=== PATIENT | male | born 1965 | race African-American/Black ===

== ENCOUNTER 2016-05-04 20:55 | Emergency (ER) | payer OTHER ==
[2016-05-04] MEDS ORDERED: Aspirin Low Dose CHEW TAB* 81 MG PO ONE (21:12)
[2016-05-04 21:50] LABS: BUN/Creatinine Ratio 19.3 (8-20); Calcium 9.7 mg/dL (8.6-10.3); EGFR African American 126.1 (>60); EGFR Non-African American 98.1 (>60); Globulin 3.6 g/dL (2-4); Total Bilirubin 0.3 mg/dL (0.2-1.0); Total Protein 7.6 g/dL (6.4-8.9)
--- NOTE | 2016-05-04 22:01 | RAD ---
HISTORY: Chest pain COMPARISONS: November 13, 2009 VIEWS:1: Single frontal portable view of the chest at 9:38 PM FINDINGS: LINES AND TUBES: None. CARDIOMEDIASTINAL SILHOUETTE: The cardiomediastinal silhouette is normal for portable technique. PLEURA: The costophrenic angles are sharp. No pleural abnormalities are noted. LUNG PARENCHYMA: The lungs are clear. ABDOMEN: The upper abdomen is clear. There is no subphrenic gas. BONES AND SOFT TISSUES: No bone or soft tissue abnormalities are noted. IMPRESSION: NO ACTIVE CARDIOPULMONARY DISEASE.
[2016-05-04 22:13] LABS: Potassium 4.1 mmol/L (3.5-5.0)
[2016-05-04] MEDS ORDERED: Ketorolac INJ* 30 MG/ML 1 ML VIAL IV ONE (23:20)
[2016-05-05 02:03] VITALS: BP 126/84
--- NOTE | 2016-05-05 23:12 | ED ---
Josesito Anthony Anna, scribed for Noah Rahman MD on 05/04/16 at 2122 . HPI Chest Pain - HPI Summary HPI Summary: Patient is a 51 y/o male coming to [facility] presenting with sudden onset of acute CP that began at 2015 this evening. He describes the pain as a stabbing pain with severity of 10/10 at peak, 7/10 at rest. He has had constant CP for one week, but it was not severe until this evening. The current pain is exacerbated by deep breaths. He additionally reports lightheadedness, arm pain, and SOB. His history is significant for NIDDM, HTN, bipolar disorder, and high cholesterol. - History of Current Complaint Time Seen by Provider: 05/04/16 21:02 Hx Obtained From: Patient, EMS Timing: Lasting Weeks Pain Intensity: 7 Pain Scale Used: 0-10 Numeric - Allergy/Home Medications Allergies/Adverse Reactions: Allergies Allergy/AdvReac Type Severity Reaction Status Date / Time Peanut-derived Allergy Severe Anaphylatic Verified 05/04/16 21:09 Shock PMH/Surg Hx/FS Hx/Imm Hx Endocrine/Hematology History: Reports: Hx Diabetes Cardiovascular History: Reports: Hx Hypercholesterolemia, Hx Hypertension Psychiatric History: Reports: Hx Bipolar Disorder - Surgical History Surgery Procedure, Year, and Place: [employer] AT AGE 6 - Immunization History Date of Tetanus Vaccine: unknwn Date of Influenza Vaccine: unknown - Family History Known Family History: Positive: Hypertension, Other - CVA - Social History Alcohol Use: None Substance Use Type: Reports: None Smoking Status (MU): Never Smoked Tobacco Review of Systems Positive: Chest Pain Positive: Shortness Of Breath Positive: Arthralgia Neurological: Other - lightheadedness All Other Systems Reviewed And Are Negative: Yes Physical Exam Triage Information Reviewed: Yes Vital Signs On Initial Exam: Temp Pulse Resp BP Pulse Ox 97.5 F 87 16 147/98 96 05/04/16 21:05 05/04/16 21:05 05/04/16 21:05 05/04/16 21:05 05/04/16 21:05 Vital Signs Reviewed: Yes Appearance: Positive: Well-Appearing, No Pain Distress Skin: Positive: Warm, Skin Color Reflects Adequate Perfusion, Dry Head/Face: Positive: Normal Head/Face Inspection Eyes: Positive: Normal ENT: Positive: Normal ENT inspection Neck: Positive: Supple, Nontender Respiratory/Lung Sounds: Positive: Clear to Auscultation, Breath Sounds Present Cardiovascular: Positive: RRR Abdomen Description: Positive: Nontender, Soft Bowel Sounds: Positive: Present Musculoskeletal: Positive: Normal Neurological: Positive: Normal Psychiatric: Positive: Affect/Mood Appropriate Diagnostics - Vital Signs Vital Signs Temp Pulse Resp BP Pulse Ox 05/05/16 02:02 98.1 F 60 17 126/84 05/05/16 01:30 65 14 133/82 99 05/05/16 01:00 63 15 126/82 97 05/05/16 00:30 123/78 05/05/16 00:01 65 21 123/78 96 05/05/16 00:00 64 20 96 05/04/16 23:30 66 17 122/80 96 05/04/16 23:00 67 20 120/80 96 05/04/16 22:55 69 19 95 05/04/16 22:30 70 13 109/76 96 05/04/16 22:00 76 16 118/75 97 05/04/16 21:30 80 15 136/85 96 05/04/16 21:29 97 05/04/16 21:05 97.5 F 87 16 147/98 96 05/04/16 21:04 92 94 05/04/16 21:03 147/98 - Laboratory Lab Results: Lab Results 05/04/16 05/04/16 05/04/16 Range/Units 21:25 21:51 21:51 D-Dimer, Quantitative < 200 (Less Than 230) ng/mL Sodium 132 L (133-145) mmol/L Potassium 4.1 (3.5-5.0) mmol/L Chloride 103 (101-111) mmol/L Carbon Dioxide 22 (22-32) mmol/L Anion Gap 7 (2-11) mmol/L BUN 16 (6-24) mg/dL Creatinine 0.83 (0.67-1.17) mg/dL Est GFR ( Amer) 126.1 (>60) Est GFR (Non-Af Amer) 98.1 (>60) BUN/Creatinine Ratio 19.3 (8-20) Glucose 195 H (70-100) mg/dL Lactic Acid 0.9 (0.5-2.0) mmol/L Calcium 9.7 (8.6-10.3) mg/dL Total Bilirubin 0.30 (0.2-1.0) mg/dL AST 14 (13-39) U/L ALT 12 (7-52) U/L Alkaline Phosphatase 50 (34-104) U/L Troponin I 0.00 (<0.04) ng/mL Total Protein 7.6 (6.4-8.9) g/dL Albumin 4.0 (3.2-5.2) g/dL Globulin 3.6 (2-4) g/dL Albumin/Globulin Ratio 1.1 (1-3) 05/05/16 Range/Units 00:40 D-Dimer, Quantitative (Less Than 230) ng/mL Sodium (133-145) mmol/L Potassium (3.5-5.0) mmol/L Chloride (101-111) mmol/L Carbon Dioxide (22-32) mmol/L Anion Gap (2-11) mmol/L BUN (6-24) mg/dL Creatinine (0.67-1.17) mg/dL Est GFR ( Amer) (>60) Est GFR (Non-Af Amer) (>60) BUN/Creatinine Ratio (8-20) Glucose (70-100) mg/dL Lactic Acid (0.5-2.0) mmol/L Calcium (8.6-10.3) mg/dL Total Bilirubin (0.2-1.0) mg/dL AST (13-39) U/L ALT (7-52) U/L Alkaline Phosphatase (34-104) U/L Troponin I 0.00 (<0.04) ng/mL Total Protein (6.4-8.9) g/dL Albumin (3.2-5.2) g/dL Globulin (2-4) g/dL Albumin/Globulin Ratio (1-3) Result Diagrams: 05/04/16 21:25 Lab Statement: Any lab studies that have been ordered have been reviewed, and results considered in the medical decision making process. - Radiology CXR Xray Interpretation: No Acute Changes Radiology Interpretation Completed By: Radiologist - EKG 2106 Cardiac Rate: NL - 85 bpm EKG Rhythm: Sinus Rhythm ST Segment: Normal Ectopy: None Chest Pain Course/Dx - Course Assessment/Plan: Patient is a 51 y/o male coming to [facility] presenting with sudden onset of acute CP that began at 2015 this evening. He describes the pain as a stabbing pain with severity of 10/10 at peak, 7/10 at rest. He has had constant CP for one week, but it was not severe until this evening. The current pain is exacerbated by deep breaths. He additionally reports lightheadedness, arm pain, and SOB. His history is significant for NIDDM, HTN, bipolar disorder, and high cholesterol. CXR reveals no acute disease. Labs reveal glucose of 195 and initial troponin of 0.00. Patient will be signed out to Dr. Tapia pending repeat troponin. - Diagnoses Provider Diagnoses: Chest pain - Provider Notifications Discussed Care Of Patient With: Dr. Tapia Time Discussed With Above Provider: 00:00 - change of shift Discharge - Discharge Plan Condition: Stable Disposition: OTHER Discharge Disposition Comment: Signed out to Dr. Tapia, pending repeat Troponin Patient Education Materials: Chest Pain (ED) Referrals: Byron Mcdaniels MD [Primary Care Provider] - The documentation as recorded by the Josesito ruiz Anna accurately reflects the service I personally performed and the decisions made by , Noah Rahman MD.
--- NOTE | 2016-07-22 20:06 | ED ---
Progress - Progress Note Progress Note: repeat troponin neg pt d/c home stable dx chest pain Course/Dx - Diagnoses Provider Diagnoses: Chest pain - Provider Notifications Discussed Care Of Patient With: Dr. Tapia Time Discussed With Above Provider: 00:00 - change of shift
== END 2016-05-05 02:02 ==
LOC: ED 20:55
DX: R07.9 Chest pain, unspecified (principal); E11.9 Type 2 diabetes mellitus without complications; I10 Essential (primary) hypertension; F31.9 Bipolar disorder, unspecified; E78.00 Pure hypercholesterolemia, unspecified
CPT/HCPCS: 36415; 71010; 80053; 83605; 84484; 85379; 93005; 96374; 99285; J1885

== ENCOUNTER 2016-12-24 13:45 | Emergency (ER) | payer SELFPAY ==
[2016-12-24 15:05] LABS: Hematocrit 42 % (42-52); Hemoglobin 14.3 g/dl (14.0-18.0); Mean Corpuscular HGB Conc 34 g/dl (31-36); Mean Corpuscular Hemoglobin 28 pg (27-31); Mean Corpuscular Volume 84 fL (80-94); Mean Platelet Volume 9 um3 (7.4-10.4); Red Blood Count 5.03 10^6/ul (4.0-5.4); Red Cell Distribution Width 14 % (10.5-15)
[2016-12-24 15:22] LABS: ALT 11 U/L (7-52); AST 15 U/L (13-39); Albumin 4.3 g/dL (3.2-5.2); Alkaline Phosphatase 60 U/L (34-104); Anion Gap 7 mmol/L (2-11); Blood Urea Nitrogen 10 mg/dL (6-24); CO2 Carbon Dioxide 26 mmol/L (22-32); Calcium 9.7 mg/dL (8.6-10.3); Chloride 102 mmol/L (101-111); EGFR African American 113.4 (>60); EGFR Non-African American 88.2 (>60); Glucose 149 mg/dL (70-100); Potassium 3.9 mmol/L (3.5-5.0); Sodium 135 mmol/L (133-145); Total Protein 8.3 g/dL (6.4-8.9)
[2016-12-24 15:26] LABS: Benzodiazepine Urine Screen None Detected (None Detect)
[2016-12-24 15:34] LABS: Acetaminophen < 15 mcg/mL; Alcohol < 10 mg/dL (<10); Salicylate < 2.50 mg/dL (<30)
[2016-12-24 15:55] LABS: Urine Bilirubin Negative (Negative); Urine Glucose 3+(>=500 mg/dL) (Negative); Urine Nitrite Negative (Negative)
[2016-12-24 15:58] LABS: TSH (Thyroid Stimulating Horm) 1.05 mcIU/mL (0.34-5.60)
[2016-12-24 16:40] VITALS: BP 139/81
--- NOTE | 2016-12-27 12:24 | ED ---
Gena Anthony Thomas, scribed for Mir Licona MD on 12/24/16 at 1556 . Psychiatric Complaint - HPI Summary HPI Summary: The patient is a 51 y/o M with a Hx of schizoaffective disorder and bipolar disorder who refuses to speak. Per security, the patient reports bad ideas unspecified as SI, HI, or other thoughts. He hands me a letter from 2006 that details his PMHx. LEVEL 5 CAVEAT: HPI IS LIMITED BY UNCOOPERATIVE PATIENT - History Of Current Complaint Chief Complaint: EDMentalHealth Time Seen by Provider: 12/24/16 14:33 Hx Obtained From: Other: - Security Hx From Patient Unobtainable Due To: Other - Uncooperative patient Onset/Duration: Still Present Timing: Constant Character: Depressed Aggravating Factor(s): Other - Unknown Alleviating Factor(s): Other - Unknown Related History: Positive For: Prior Psychiatric Issues - Allergies/Home Medications Allergies/Adverse Reactions: Allergies Allergy/AdvReac Type Severity Reaction Status Date / Time Peanut-derived Allergy Severe Anaphylatic Verified 05/04/16 21:09 Shock PMH/Surg Hx/FS Hx/Imm Hx Previously Healthy: No - LEVEL 5 CAVEAT: PMH IS LIMITED BY UNCOOPERATIVE PATIENT Endocrine/Hematology History: Reports: Hx Diabetes Cardiovascular History: Reports: Hx Hypercholesterolemia, Hx Hypertension Psychiatric History: Reports: Hx Bipolar Disorder, Other Psychiatric Issues/ Disorders - Hx Schizoaffective disorder - Surgical History Surgery Procedure, Year, and Place: [employer] AT AGE 6 - Immunization History Date of Tetanus Vaccine: unknwn Date of Influenza Vaccine: unknown Infectious Disease History: No Infectious Disease History: Denies: Traveled Outside the [place] in Last 30 Days - Family History Known Family History: Positive: Hypertension, Other - CVA - Social History Alcohol Use: None Substance Use Type: Reports: None Smoking Status (MU): Never Smoked Tobacco Review of Systems - ROS Summary Review of Systems Summary: LEVEL 5 CAVEAT: ROS IS LIMITED BY UNCOOPERATIVE PATIENT Positive: Other - Patient refuses to speak All Other Systems Reviewed And Are Negative: No Physical Exam - Summary Physical Exam Summary: LEVEL 5 CAVEAT: PHYSICAL EXAM IS LIMITED BY UNCOOPERATIVE PATIENT General: Well appearing, no distress Cardiovascular: Skin is well perfused Pulmonary: No respiratory distress, no tachypnea Abdomen: Non-distended Skin: Warm, pink, dry Psych: The patient refuses to speak. He has a very depressed and flat affect. He does shake his head "no" when I tell him to get into a gown. Triage Information Reviewed: Yes Vital Signs On Initial Exam: Initial Vitals Temp Pulse Resp BP Pulse Ox 98.8 F 88 20 140/72 98 12/24/16 14:31 12/24/16 14:31 12/24/16 14:31 12/24/16 14:31 12/24/16 14:31 Vital Signs Reviewed: Yes - Flower Coma Scale Coma Scale Total: 15 Diagnostics - Vital Signs Vital Signs Temp Pulse Resp BP Pulse Ox 12/24/16 14:31 98.8 F 88 20 140/72 98 - Laboratory Lab Results: Lab Results 12/24/16 12/24/16 12/24/16 Range/Units 14:20 14:45 14:45 WBC 6.0 (3.5-10.8) 10^3/ul RBC 5.03 (4.0-5.4) 10^6/ul Hgb 14.3 (14.0-18.0) g/dl Hct 42 (42-52) % MCV 84 (80-94) fL MCH 28 (27-31) pg MCHC 34 (31-36) g/dl RDW 14 (10.5-15) % Plt Count 191 (150-450) 10^3/ul MPV 9 (7.4-10.4) um3 Neut % (Auto) 58.0 (38-83) % Lymph % (Auto) 34.0 (25-47) % Knott % (Auto) 6.5 (1-9) % Eos % (Auto) 0.4 (0-6) % Baso % (Auto) 1.1 (0-2) % Absolute Neuts (auto) 3.5 (1.5-7.7) 10^3/ul Absolute Lymphs (auto) 2.0 (1.0-4.8) 10^3/ul Absolute Monos (auto) 0.4 (0-0.8) 10^3/ul Absolute Eos (auto) 0 (0-0.6) 10^3/ul Absolute Basos (auto) 0.1 (0-0.2) 10^3/ul Absolute Nucleated RBC 0 10^3/ul Nucleated RBC % 0.1 Sodium 135 (133-145) mmol/L Potassium 3.9 (3.5-5.0) mmol/L Chloride 102 (101-111) mmol/L Carbon Dioxide 26 (22-32) mmol/L Anion Gap 7 (2-11) mmol/L BUN 10 (6-24) mg/dL Creatinine 0.91 (0.67-1.17) mg/dL Est GFR ( Amer) 113.4 (>60) Est GFR (Non-Af Amer) 88.2 (>60) BUN/Creatinine Ratio 11.0 (8-20) Glucose 149 H (70-100) mg/dL Calcium 9.7 (8.6-10.3) mg/dL Total Bilirubin 0.40 (0.2-1.0) mg/dL AST 15 (13-39) U/L ALT 11 (7-52) U/L Alkaline Phosphatase 60 (34-104) U/L Total Protein 8.3 (6.4-8.9) g/dL Albumin 4.3 (3.2-5.2) g/dL Globulin 4.0 (2-4) g/dL Albumin/Globulin Ratio 1.1 (1-3) TSH Pending Salicylates < 2.50 (<30) mg/dL Urine Opiates Screen None detected (None Detect) Acetaminophen < 15 mcg/mL Ur Barbiturates Screen None detected (None Detect) Ur Phencyclidine Scrn None detected (None Detect) Ur Amphetamines Screen None detected (None Detect) U Benzodiazepines Scrn None detected (None Detect) Urine Cocaine Screen None detected (None Detect) U Cannabinoids Screen None detected (None Detect) Serum Alcohol < 10 (<10) mg/dL Result Diagrams: 12/24/16 14:45 12/24/16 14:45 Lab Statement: Any lab studies that have been ordered have been reviewed, and results considered in the medical decision making process. Course/Dx - Course Assessment/Plan: The patient is a 51 y/o M with a Hx of schizoaffective disorder and bipolar disorder who refuses to speak. Per security, the patient reports bad ideas unspecified as SI, HI, or other thoughts. He hands me a letter from 2006 that details his PMHx. Bloodwork was obtained. UA was obtained. Urine toxicology is negative. The patient is cleared for MHE at 16:08. - Differential Dx/Clinical Impression Provider Diagnosis: Catatonia schizophrenia Discharge - Discharge Plan Condition: Stable Disposition: HOME Referrals: [facility] [Outside] Bishop Ackerman MD [Medical Doctor] - No Primary Care Phys,NOPCP [Primary Care Provider] - Additional Instructions: Per completion of a mental health evaluation, you are cleared for release and do not require inpatient psychiatric hospitalization at this time. Please go to nearest emergency room or call 911 if safety concerns arise or condition worsens. IMPORTANT PHONE NUMBERS: [facility] Behavioral Services Unit: [facility] Emergency Room Flex Unit: Suicide Prevention and Crisis Services: National Suicide Prevention Lifeline: [phone]) 464-VMMA ([phone]) [facility]: [facility] Outreach for Older Adults: [facility] Association: [facility]: OUTPATIENT SERVICES You have been referred to [facility]. It is our recommendation that you call [facility] to secure an appointment on their next business day, FridayDecember 25. Adults can schedule their first appointment by phone or in person during walk-in hours. Walk-in hours occur Friday - Friday until 2:30pm. If you require further assistance connecting to outpatient providers, please contact our Mental Health Unit at . [facility] [address], [place] [address] You have been referred to the [facility] ( [facility]). It is our It is our recommendation that you call [facility] to discuss potential programs you may further benefit from on their next business day. [facility] is open Friday to Friday from 9: 00am until 4:30pm. We have provided you with information on their adult services, [facility], and Family Support Services during review of discharge instructions. [facility] [address], [address] [place], [place] [address] No changes or adjustments were made to your medication regimen during this evaluation. Continue medications as prescribed by your outpatient providers. It is our recommendation that you contact Dr. Ackerman directly to discuss further medication management. The documentation as recorded by the Gena ruiz Thomas accurately reflects the service I personally performed and the decisions made by me, Mir Licona MD.
== END 2016-12-24 21:15 | disposition home or self-care (01) ==
LOC: ED 13:45
DX: F20.2 Catatonic schizophrenia (principal)
CPT/HCPCS: 36415; 80053; 80307; 80320; 80329; 81003; 84443; 85025; 93005; 99285; G0480

== ENCOUNTER 2017-10-07 10:03 | Emergency (ER) | payer OTHER ==
--- NOTE | 2017-10-07 10:08 | ED ---
Dizziness - HPI Summary HPI Summary: 52 y/o male presents to the ED c/o sudden onset dizziness and nausea at 06:00 this morning. Pt woke up to this. Pt describes dizziness as a room spinning, where "everything was moving". Associated sx: weakness, SOB. PMHx DM type II, HTN. 175/100 BP this morning. This is scribe Ed Lilia documenting for attending Willard Rutherford MD - History Of Current Complaint Stated Complaint: DIZZINESS/NAUSEOUS Hx Obtained From: Patient Timing: Constant Character: Weak, Dizzy Associated Signs And Symptoms: Positive: Nausea, SOB - Allergies/Home Medications Allergies/Adverse Reactions: Allergies Allergy/AdvReac Type Severity Reaction Status Date / Time No Known Allergies Allergy Verified 10/07/17 11:31 Home Medications: Home Medications Empagliflozin [Jardiance] 25 mg PO DAILY 10/07/17 [History Confirmed 10/07/17] Lovastatin(NF) [Mevacor(NF)] 20 mg PO DAILY 10/07/17 [History Confirmed 10/07/17 ] Ramipril CAP* [Altace CAP*] 2.5 mg PO DAILY 10/07/17 [History Confirmed 10/07/17 ] Sertraline* [Zoloft*] 25 mg PO DAILY 10/07/17 [History Confirmed 10/07/17] glipiZIDE TAB* [Glucotrol TAB*] 5 mg PO BID 10/07/17 [History Confirmed 10/07/17 ] hydrOXYzine HCL TAB* [Atarax 25 MG TAB*] 25 - 50 mg PO QPM PRN 10/07/17 [ History Confirmed 10/07/17] lamoTRIgine TAB(*) [Lamictal TAB(*)] 25 mg PO BID 10/07/17 [History Confirmed ] PMH/Surg Hx/FS Hx/Imm Hx Previously Healthy: No Endocrine/Hematology History: Reports: Hx Diabetes Cardiovascular History: Reports: Hx Hypercholesterolemia, Hx Hypertension Psychiatric History: Reports: Hx Bipolar Disorder, Other Psychiatric Issues/ Disorders - Hx Schizoaffective disorder Denies: Hx of Violent Episodes Against Others - Surgical History Surgery Procedure, Year, and Place: [employer] AT AGE 6 - Immunization History Date of Tetanus Vaccine: unknwn Date of Influenza Vaccine: unknown - Family History Known Family History: Positive: Hypertension, Other - CVA - Social History Alcohol Use: None Substance Use Type: Reports: None Smoking Status (MU): Never Smoked Tobacco Review of Systems Constitutional: Negative Eyes: Negative ENT: Negative Cardiovascular: Negative Positive: Shortness Of Breath Positive: Nausea Genitourinary: Negative Musculoskeletal: Negative Skin: Negative Neurological: Other - dizziness Positive: Weakness Psychological: Normal All Other Systems Reviewed And Are Negative: Yes Physical Exam - Summary Physical Exam Summary: VITAL SIGNS: Reviewed. GENERAL: Patient is a well-developed and nourished MALE who is lying comfortable in the stretcher. Patient is not in any acute respiratory distress. HEAD AND FACE: Normocephalic EYES: PERRLA, EOMI x 2. No nystagmus. EARS: Hearing grossly intact. MOUTH: Oropharynx within normal limits. NECK: Supple, trachea is midline, no adenopathy, no JVD, no carotid bruit. CHEST: Symmetric, no tenderness at palpation LUNGS: Clear to auscultation bilaterally. No wheezing or crackles. CVS: Regular rate and rhythm, S1 and S2 present, no murmurs or gallops appreciated. ABDOMEN: Soft, non-tender. Bowel sounds are normal. No abdominal abnormal pulsations. EXTREMITIES: Full ROM in all major joints, no edema, no cyanosis or clubbing. NEURO: Alert and oriented x 3. No acute neurological deficits. Speech is normal and follows commands. SKIN: Dry and warm Triage Information Reviewed: Yes Vital Signs Reviewed: Yes Diagnostics - Laboratory Result Diagrams: 10/07/17 10:34 10/07/17 10:34 Lab Statement: Any lab studies that have been ordered have been reviewed, and results considered in the medical decision making process. - Radiology CXR Xray Interpretation: No Acute Changes - LOW LUNG VOLUMES. NO ACTIVE CARDIOPULMONARY DISEASE. Radiology Interpretation Completed By: Radiologist - CT BRAIN CT CT Interpretation: No Acute Changes - NO ACUTE INTRACRANIAL PATHOLOGY CT Interpretation Completed By: Radiologist - Additional Comments Diagnostic Additional Comments: EKG - 10:22 - SB @ [address] elevations, T wave inversions in III, aVF. Diffuse ST abnormalities. Unchanged from 12/24/16. Re-Evaluation - Re-Evaluation 1 Re-Evaluation Time: 13:00 Change: Improved - Pt feeling better. Instructed d/c. Discussed test results and findings Dizzy Course/Dx - Course Assessment/Plan: Patient is a 52-year-old male who presents to the emergency room via ambulance with chief complaint of dizziness. Patient reports that he woke up approximately 6 in the morning he developed dizziness. He reports the room spinning acid with mild nausea. Denies any chest pain shows with the palpitations. Patient has past medical history significant for diabetes, hypertension and dyslipidemia. Blood test results without any significant abnormality except for mild anemia, and glucose of 159. Chest x-ray impression : Low lung volumes. No active Pulmonary disease. Head CT impression: No acute interconnected pathology. In the ED course the patient was given IV fluids, Antivert for the dizziness and his symptoms have resolved. The patient also was given Zofran for nausea vomiting and he reports that he is feeling better and all his symptoms have resolved. The patient is hemodynamically stable alert and oriented 3. I discussed all the findings and test results with the patient and the need to follow-up with PCP. All his questions were answered and he has no further concerns. He was instructed to return to the emergency room he develops any chest pain, shortness of breath, dizziness or he returns he understands and agrees. - Diagnoses Provider Diagnoses: Vertigo Discharge - Sign-Out/Discharge Documenting (check all that apply): Patient Departure - Discharge Plan Condition: Stable Disposition: HOME Prescriptions: Meclizine TAB* [Antivert 12.5 TAB*] 25 mg PO TID PRN #30 tab PRN Reason: Vertigo Patient Education Materials: Vertigo (ED) Referrals: [facility] [Outside] - If Needed (CALL FOR APPOINTMENT) [facility] [Outside] - 4 Days (PLEASE F/U IN 3-5 DAYS) Additional Instructions: RETURN FOR CHANGING/WORSENING SYMPTOMS
[2017-10-07] MEDS ORDERED: NS 0.9% 1000 ML* 1,000 ML IV ONE (10:17)
[2017-10-07] MEDS ORDERED: Meclizine TAB* 12.5 MG PO ONE (10:17)
[2017-10-07] MEDS ORDERED: Ondansetron INJ* 2 MG/ML VIAL IV ONE (10:17)
[2017-10-07 10:50] LABS: ABS Basophils 0 10^3/ul (0-0.2); ABS Eosinophils 0.1 10^3/ul (0-0.6); ABS Lymphocytes 2.4 10^3/ul (1.0-4.8); ABS Monocytes 0.5 10^3/ul (0-0.8); ABS Neutrophils 2.3 10^3/ul (1.5-7.7); ABS Nucleated RBC 0 10^3/ul; Eosinophil % 1.1 % (0-6); Hematocrit 40 % (42-52); Hemoglobin 13.5 g/dl (14.0-18.0); Lymphocyte % 45.7 % (25-47); Mean Corpuscular HGB Conc 34 g/dl (31-36); Mean Corpuscular Hemoglobin 28 pg (27-31); Mean Corpuscular Volume 83 fL (80-94); Mean Platelet Volume 8.9 um3 (7.4-10.4); Nucleated Red Blood Cells % 0.2; Platelet Count 155 10^3/ul (150-450); Red Blood Count 4.79 10^6/ul (4.00-5.40); Red Cell Distribution Width 14 % (10.5-15); White Blood Count 5.3 10^3/ul (3.5-10.8)
--- NOTE | 2017-10-07 10:59 | RAD ---
HISTORY: dizziness COMPARISONS: May 04, 2016 VIEWS: 4: Frontal dual-energy and lateral views of the chest. FINDINGS: CARDIOMEDIASTINAL SILHOUETTE: The cardiomediastinal silhouette is normal. SHAKEEL: The shakeel are normal. PLEURA: The costophrenic angles are sharp. No pleural abnormalities are noted. LUNG PARENCHYMA: The lung volumes are low. The lungs are clear. ABDOMEN: The upper abdomen is clear. There is no subphrenic gas. BONES AND SOFT TISSUES: No bone or soft tissue abnormalities are noted. OTHER: None. IMPRESSION: LOW LUNG VOLUMES. NO ACTIVE CARDIOPULMONARY DISEASE.
[2017-10-07 11:14] LABS: EGFR Non-African American 96.3 (>60)
--- NOTE | 2017-10-07 12:22 | RAD ---
HISTORY: dizziness COMPARISONS: MRI dated September 12, 2008 TECHNIQUE: Multiple contiguous axial CT scans were obtained of the head without intravenous contrast. FINDINGS: HEMORRHAGE/INFARCT: There is no hemorrhage or acute infarct. MASSES/SHIFT: There is no mass or shift. EXTRA-AXIAL SPACES: There are no extra-axial fluid collections. SULCI AND VENTRICLES: The sulci and ventricles are normal in size and position for the patient's stated age. CEREBRUM: There are no focal parenchymal abnormalities. BRAINSTEM: There are no focal parenchymal abnormalities. CEREBELLUM: There are no focal parenchymal abnormalities. VESSELS: The vessels are grossly normal. PARANASAL SINUSES: The paranasal sinuses are clear. ORBITS: The orbits are unremarkable. BONES AND SOFT TISSUE: No bone or soft tissue abnormalities are noted. OTHER: None IMPRESSION: NO ACUTE INTRACRANIAL PATHOLOGY.
[2017-10-07 13:16] LABS: Urine Appearance Clear; Urine Blood Negative (Negative); Urine Color Yellow; Urine Ketones Trace (Negative); Urine Protein Negative (Negative); Urine Specific Gravity 1.028 (1.010-1.030); Urine Urobilinogen Negative (Negative)
[2017-10-07 13:27] VITALS: BP 145/82
== END 2017-10-07 13:26 | disposition home or self-care (01) ==
LOC: ED 10:03
DX: R42 Dizziness and giddiness (principal); R11.2 Nausea with vomiting, unspecified; D64.9 Anemia, unspecified; E11.9 Type 2 diabetes mellitus without complications; I10 Essential (primary) hypertension; E78.5 Hyperlipidemia, unspecified; Z79.84 Long term (current) use of oral hypoglycemic drugs; Z79.899 Other long term (current) drug therapy
CPT/HCPCS: 36415; 70450; 71046; 80053; 80307; 80320; 81003; 82550; 83605; 83735; 83880; 84443; 84484; 85025; 86140; 93005; 96361; 96374; 99283; A9270-GY; G0480; J2405

== ENCOUNTER 2018-01-26 14:29 | Emergency (ER) | payer OTHER ==
[2018-01-26 14:49] VITALS: BP 140/85
--- NOTE | 2018-01-26 15:23 | UC ---
Eye Complaint HPI - HPI Summary HPI Summary: Patient presents with a past medical history of DM, and depression. He states he was a patient of Dr. Guillen and was discharged from the practice. He states he has ran out of his depression medication and his diabetic medications. He is in the process of finding a new doctor. He also states he has a stye of his left eye x 5 days, with not pain, drainage, or visual changes. He reports no other concerns or complaints at this visit. - History of Current Complaint Chief Complaint: UCEye Stated Complaint: EYE COMPLAINT Time Seen by Provider: 01/26/18 15:18 Hx Obtained From: Patient Onset/Duration: Sudden Onset Timing: Constant Severity Initially: Mild Severity Currently: Mild Pain Intensity: 5 Location of Injury: Eye Lid (upper) Character: Dull Aggravating Factor(s): Blinking Alleviating Factor(s): Nothing Associated Signs And Symptoms: Positive: Negative Related History: Similar Episode - stye - Risk Factors Penetrating Injury Risk Factor: Negative Acute Glaucoma Risk Factors: Negative - Allergies/Home Medications Allergies/Adverse Reactions: Allergies Allergy/AdvReac Type Severity Reaction Status Date / Time peanut Allergy See Comment Verified 01/26/18 14:50 Home Medications: Home Medications Aspirin 81 mg PO ONCE PRN 01/26/18 [History Confirmed 01/26/18] Naproxen [Naprosyn 500 mg tab] 500 mg PO ONCE PRN 01/26/18 [History Confirmed ] PMH/Surg Hx/FS Hx/Imm Hx Previously Healthy: Yes Endocrine History: Diabetes Psychological History: Depression, Bipolar Disorder - Surgical History Surgical History: Yes Surgery Procedure, Year, and Place: [employer] AT AGE 6 - Family History Known Family History: Positive: Hypertension, Other - CVA - Social History Occupation: Disabled Lives: Alone Alcohol Use: None Substance Use Type: None Smoking Status (MU): Never Smoked Tobacco Review of Systems All Other Systems Reviewed And Are Negative: Yes Constitutional: Positive: Negative Skin: Positive: Negative Eyes: Positive: Other - swelling of right upper eye lid ENT: Positive: Negative Respiratory: Positive: Negative Cardiovascular: Positive: Negative Gastrointestinal: Positive: Negative Genitourinary: Positive: Negative Motor: Positive: Negative Neurovascular: Positive: Negative Musculoskeletal: Positive: Negative Neurological: Positive: Negative Psychological: Positive: Negative Physical Exam Triage Information Reviewed: Yes Appearance: Well-Appearing Vital Signs: Initial Vital Signs Temp 96 F 01/26/18 14:43 Pulse 81 01/26/18 14:43 Resp 18 01/26/18 14:43 BP 140/85 01/26/18 14:43 Pulse Ox 100 01/26/18 14:43 Vital Signs Reviewed: Yes Eye Exam: Normal Eyes: Positive: Conjunctiva Clear, Other: - localized swelling of the right medial upper eye lid. ENT Exam: Normal Neck exam: Normal Neck: Positive: 1 Respiratory Exam: Normal Cardiovascular Exam: Normal Abdominal Exam: Normal Musculoskeletal Exam: Normal Neurological Exam: Normal Psychological Exam: Normal Skin Exam: Normal Eye Complaint Course/Dx - Course Course Of Treatment: Patient present with a stye of the right eye, he was treated with erythomycin opth ointment tid x 7 days. He also needed refills of his jardiance, and lamictial which were veribfied and he was given a 14 day supply and physician referral. He was previously a patient of Dr. Guillen and appears to have been discharged from his service. - Differential Dx/Diagnosis Differential Diagnosis/HQI/PQRI: Other - stye Provider Diagnoses: stye Discharge - Sign-Out/Discharge Documenting (check all that apply): Patient Departure All imaging exams completed and their final reports reviewed: No Studies - Discharge Plan Condition: Stable Disposition: HOME Prescriptions: Empagliflozin [Jardiance] 25 mg PO BID #28 tab Erythromycin OPTH OINT* [Erythromycin 0.5% OPTH OINT*] 1 applic RIGHT EYE TID # 1 ophth.oint lamoTRIgine TAB(*) [LaMICtal TAB(*)] 50 mg PO BID #28 tab Patient Education Materials: Stye (ED), Medicine Refill (ED) Referrals: No Primary Care Phys,NOPCP [Primary Care Provider] - Francisco Akhtar MD [Medical Doctor] - - Billing Disposition and Condition Condition: STABLE Disposition: Home - Attestation Statements Document Initiated by Scribe: No Scribe Documentation Reviewed: No
== END 2018-01-26 15:33 | disposition home or self-care (01) ==
LOC: UCEAST 14:29
DX: H00.014 Hordeolum externum left upper eyelid (principal); E11.9 Type 2 diabetes mellitus without complications; Z91.010 Allergy to peanuts; Z79.82 Long term (current) use of aspirin
CPT/HCPCS: 99212; G0463

== ENCOUNTER 2018-03-25 13:30 | Emergency (ER) | payer OTHER ==
--- NOTE | 2018-03-25 14:59 | UC ---
Psychiatric Complaint HPI - HPI Summary HPI Summary: 52 y/o male presents to the urgent care requesting medication refill for his Bipolar disorder and HTN. Pt reports feeling well. However he run out of his medications and all of the PCP's in the area have refused to see him. He states she has missed a lot of his appt and now their offices refused to see him. Last DR who saw him was Dr Conroy. He request medication refill for Lamotrigine PO and Ramipril PO. He states he has missed his appt id because he becomes bery anxious when He denies any depressive thoughts, suicidal or hallucination or homicidal ideation now. Pt states his ex- is the director in the [facility] and they have also declined to see him to get medication refill. He contacted his ex- over the phone and she states she will tried to get him an appt for further management on his psychiatric problem. Pt denies fever, HERNANDEZ, dizziness, SOB, chest pain, abdominal pain, N/V/D. - History Of Current Complaint Chief Complaint: UCMedRefill Stated Complaint: MED REFILL Time Seen by Provider: 03/25/18 14:56 Hx Obtained From: Patient Onset/Duration: Still Present - Pt requesting medication refill for Bipolar disorder and HTN Timing: Constant Severity Initially: Mild Severity Currently: Mild Aggravating Factor(s): Nothing Alleviating Factor(s): Medication Associated Signs And Symptoms: Negative - Risk Factor(s) Completed Suicide Risk Factors: Negative - Allergies/Home Medications Allergies/Adverse Reactions: Allergies Allergy/AdvReac Type Severity Reaction Status Date / Time peanut Allergy See Comment Verified 03/25/18 13:53 PMH/Surg Hx/FS Hx/Imm Hx Previously Healthy: Yes Endocrine History: Diabetes Cardiovascular History: Hypertension Psychological History: Bipolar Disorder - Surgical History Surgical History: Yes Surgery Procedure, Year, and Place: [employer] AT AGE 6 - Family History Known Family History: Positive: Hypertension, Other - CVA - Social History Occupation: Unemployed Lives: With Family Alcohol Use: None Substance Use Type: None Smoking Status (MU): Never Smoked Tobacco Review of Systems All Other Systems Reviewed And Are Negative: Yes Constitutional: Positive: Negative Skin: Positive: Negative Eyes: Positive: Negative ENT: Positive: Negative Respiratory: Positive: Negative Cardiovascular: Positive: Negative Gastrointestinal: Positive: Negative Genitourinary: Positive: Negative Motor: Positive: Negative Neurovascular: Positive: Negative Musculoskeletal: Positive: Negative Neurological: Positive: Negative Psychological: Positive: Negative Is Patient Immunocompromised?: No Physical Exam - Summary Physical Exam Summary: Vital Signs Reviewed: Yes General: well developed, well nourished male sitting in the examining table w/o any apparent respiratory distress. Eyes: Positive: Conjunctiva Clear - PERRLA, EOMI, fundi grossly normal ENT: Positive: Normal ENT inspection, Hearing grossly normal, Pharynx normal, TMs normal - B/L external ear canal clear, B/L TM's WNL, Other: - no maxillary or frontal sinus tenderness on percussion. Negative David-hallpike maneuver. Negative: Tonsillar swelling, Tonsillar exudate Dental Exam: Normal Neck: Positive: Supple, Nontender, No Lymphadenopathy Respiratory: Positive: Chest non-tender, Lungs clear, Normal breath sounds Cardiovascular: Positive: RRR, No Murmur, Pulses Normal, Brisk Capillary Refill Abdomen Description: Positive: Nontender, No Organomegaly, Soft. Negative: CVA Tenderness (R), CVA Tenderness (L) Bowel Sounds: Positive: Present Musculoskeletal Exam: Normal Musculoskeletal: Positive: Strength Intact, ROM Intact, No Edema Neurological Exam: Normal Neurological: Positive: Alert, Muscle Tone Normal, Other: - -Neuro: A&O x4, GCS 15, CN II-XII intact, no focal neuro deficits, normal eqdlma-cv-sora or heel-to- burkett testing. Romberg neg, no pronator drift, normal rapid alternating movements. Gait is normal, Psychological Exam: Normal, no suicidal or homicidal gestures or aggressiveness or depression observed Skin Exam: Normal Triage Information Reviewed: Yes Vital Signs: Initial Vital Signs Temp 96.4 F 03/25/18 13:50 Pulse 88 03/25/18 13:50 Resp 18 03/25/18 13:50 BP 150/90 03/25/18 13:50 Pulse Ox 99 03/25/18 13:50 Psych Complaint Course/Dx - Course Course Of Treatment: 52 y/o male presents to the urgent care requesting medication refill for his Bipolar disorder and HTN. Pt reports feeling well. However he run out of his medications and all of the PCP's in the area have refused to see him. He states she has missed a lot of his appt and now their offices refused to see him. Last DR who saw him was Dr Conroy. He request medication refill for Lamotrigine PO and Ramipril PO. He states he has missed his appt id because he becomes bery anxious when He denies any depressive thoughts, suicidal or hallucination or homicidal ideation now. Pt states his ex- is the director in the [facility] and they have also declined to see him to get medication refill. He contacted his ex- over the phone and she states she will tried to get him an appt for further management on his psychiatric problem. Pt denies fever, HERNANDEZ, dizziness, SOB, chest pain, abdominal pain, N/V/D. Hx obtained. PE: WNL. Pt is hemodynamically stable, A&OX4, Pt doesn 't present w/ suicial or homicidal gestures on examination. Pt explained the improtance to be compliant w/ his appt, specially for his bipolar disorder. Nurse contacted pharmacy to comfirm dosages. Pt Rx Lamotrigine PO and Ramipril PO as directed below. I tried to contact Dr Conroy's office, but was closed. Pt's BP is elevated today advised to decrease salt in diet, monitor BP and f/u with PCP for further management. Pt given [facility] [place] referral and advised to call them to get an appt for futher management. Pt understood and agreed and left the clinic ambulating and hemodynamically stable. - Differential Dx/Diagnosis Differential Diagnosis/HQI/PQRI: Acute Psychosis, Anxiety, Bipolar Disorder, Depression, Homicidal Ideation, Homicidal Gesture, Suicide Attempt, Suicidal Ideation, Other - medication refill Provider Diagnosis: Medication refill, Bipolar disorder, Uncontrolled hypertension Discharge - Sign-Out/Discharge Documenting (check all that apply): Patient Departure - D/C home All imaging exams completed and their final reports reviewed: No Studies - Discharge Plan Condition: Stable Disposition: HOME Prescriptions: lamoTRIgine TAB(*) [LaMICtal TAB(*)] 50 mg PO BID PC #14 tab Ramipril CAP* [Altace CAP*] 2.5 mg PO DAILY #7 cap Patient Education Materials: Bipolar Disorder (ED), Chronic Hypertension (ED), Low-Sodium Diet (ED) Referrals: [facility] [place] PHYSICIAN REFERRAL [Outside] - 3 Days No Primary Care Phys,NOPCP [Primary Care Provider] - Additional Instructions: 1- Your BP is elevated today. please decrease salt in your diet, monitor BP and if it continues to be elevated please f/u with your PCP for further management. You were given medication refill for your HTN medication for 1 week. Please f/u w/ your PCP for medication refill. 2- Please take Lamictal PO directed Please f/u w/ your PCP for further management. - Billing Disposition and Condition Condition: STABLE Disposition: Home
[2018-03-25 16:10] VITALS: BP 142/84
== END 2018-03-25 16:06 | disposition home or self-care (01) ==
LOC: UCEAST 13:30
DX: F31.9 Bipolar disorder, unspecified (principal); I10 Essential (primary) hypertension; Z76.0 Encounter for issue of repeat prescription; Z91.010 Allergy to peanuts
CPT/HCPCS: 99212; G0463

== ENCOUNTER 2018-04-29 18:43 | Emergency (ER) | payer OTHER ==
[2018-04-29 19:03] VITALS: BP 168/72
[2018-04-29] MEDS ORDERED: Benzonatate CAP* 100 MG PO ONE (19:52)
--- NOTE | 2018-04-29 19:57 | UC ---
Respiratory Complaint HPI - HPI Summary HPI Summary: Patient is a 53-year-old male with a one-week history of nasal congestion and cough. He has felt a little dizzy at times. He denies any fever or chills. He denies any chest pain or shortness of breath. He has no myalgias or arthralgias. - History of Current Complaint Chief Complaint: UCGeneralIllness Stated Complaint: COLD SYMP Time Seen by Provider: 04/29/18 19:45 Hx Obtained From: Patient Onset/Duration: Gradual Onset, Lasting Hours, Lasting Days Severity Initially: Mild Severity Currently: Moderate Pain Intensity: 4 Pain Scale Used: 0-10 Numeric Character: Cough: Nonproductive Aggravating Factors: Nothing Associated Signs And Symptoms: Positive: Nasal Congestion, Sinus Discomfort - Allergies/Home Medications Allergies/Adverse Reactions: Allergies Allergy/AdvReac Type Severity Reaction Status Date / Time peanut Allergy See Comment Verified 04/29/18 19:03 PMH/Surg Hx/FS Hx/Imm Hx Endocrine History: Diabetes, Dyslipidemia Cardiovascular History: Hypertension Psychological History: Bipolar Disorder - Surgical History Surgical History: Yes Surgery Procedure, Year, and Place: [employer] AT AGE 6 - Family History Known Family History: Positive: Hypertension, Other - CVA - Social History Alcohol Use: None Substance Use Type: None Smoking Status (MU): Never Smoked Tobacco Review of Systems All Other Systems Reviewed And Are Negative: Yes Constitutional: Positive: Negative Skin: Positive: Negative Eyes: Positive: Negative ENT: Positive: Nasal Discharge, Sinus Congestion Respiratory: Positive: Cough Cardiovascular: Positive: Negative Gastrointestinal: Positive: Negative Genitourinary: Positive: Negative Motor: Positive: Negative Neurovascular: Positive: Negative Musculoskeletal: Positive: Negative Neurological: Positive: Negative Psychological: Positive: Negative Physical Exam Triage Information Reviewed: Yes Appearance: Well-Appearing, No Pain Distress, Well-Nourished Vital Signs: Initial Vital Signs Temp 97.2 F 04/29/18 18:58 Pulse 96 04/29/18 18:58 Resp 16 04/29/18 18:58 BP 168/72 04/29/18 18:58 Pulse Ox 96 04/29/18 18:58 Vital Signs Reviewed: Yes Eyes: Positive: Conjunctiva Clear ENT: Positive: Pharynx normal, Nasal congestion, Nasal drainage, TMs normal, Uvula midline. Negative: Tonsillar swelling, Tonsillar exudate, Hoarse voice, Dental tenderness, Sinus tenderness Neck: Positive: Supple, Nontender, No Lymphadenopathy Respiratory: Positive: Lungs clear, Normal breath sounds, No respiratory distress, No accessory muscle use Cardiovascular: Positive: RRR, No Murmur Musculoskeletal: Positive: ROM Intact, No Edema Neurological: Positive: Alert Psychological Exam: Normal Skin Exam: Normal UC Diagnostic Evaluation - Laboratory O2 Sat by Pulse Oximetry: 96 - normal/not hypoxic Respiratory Course/Dx - Differential Dx/Diagnosis Provider Diagnosis: Viral URI with cough Discharge - Sign-Out/Discharge Documenting (check all that apply): Patient Departure All imaging exams completed and their final reports reviewed: No Studies - Discharge Plan Condition: Stable Disposition: HOME Prescriptions: Benzonatate CAP* [Tessalon CAP*] 100 - 200 mg PO TID PRN #28 cap PRN Reason: Cough Fluticasone NASAL SPRAY 50MCG* [Flonase NASAL SPRAY 50MCG*] 2 spray BOTH NARES BID #1 btl Patient Education Materials: Upper Respiratory Infection (ED) Referrals: No Primary Care Phys,NOPCP [Primary Care Provider] - Additional Instructions: recheck in 4-5 days if not better - Billing Disposition and Condition Condition: STABLE Disposition: Home
== END 2018-04-29 20:11 | disposition home or self-care (01) ==
LOC: UCEAST 18:43
DX: J06.9 Acute upper respiratory infection, unspecified (principal); Z91.010 Allergy to peanuts
CPT/HCPCS: 99212; A9270-GY; G0463